=== PATIENT | male | born 1960 | race Caucasian/White ===

== ENCOUNTER 2019-11-27 08:04 | Inpatient (IN) | payer MEDICAID, OTHER ==
[~2019-11-27] VITALS: Ht 167.6 cm; Wt 89.2 kg
[2019-11-27] MEDS ORDERED: SODIUM CHLORIDE FLUSH 10ML SYR IVF ONE (08:30)
--- NOTE | 2019-11-27 08:40 | NUR ---
To ER today for abnl labs: elevated creatinine & K+. Pt has gen. weakness/tiredness. Guiac-. Markedly hypertensive at time of arrival through triage. BP recheck once roomed mildly elevated. Provider informed & labetolol held. EKG completed, cardiac, NiBP & Spo2 monitors IP. IV est, labs drawn & sent. Call light within reach, @ BS. Both aware of POC.
[2019-11-27 08:42] LABS: BASOPHILS # (AUTO) 0.02 x10^3/uL (0-0.1); BASOPHILS % (AUTO) 0 % (0-1); EOSINOPHILS # (AUTO) 0.21 x10^3/uL (0-0.4); EOSINOPHILS % (AUTO) 2 % (1-7); LYMPHOCYTES # (AUTO) 0.81 x10^3/uL (1-3.4); LYMPHOCYTES % (AUTO) 7 % (22-44); MD NO; MEAN CORPUSCULAR HEMOGLOBIN 30.1 pg (27.5-34.5); MEAN CORPUSCULAR HGB CONC 33.4 g/dL (33.2-36.2); MEAN CORPUSCULAR VOLUME 90.2 fL (81-97); MEAN PLATELET VOLUME 8.2 fL (7.4-10.4); MONOCYTES % (AUTO) 5 % (2-9); NEUTROPHILS # (AUTO) 9.33 x10^3/uL (1.8-6.8); NEUTROPHILS % (AUTO) 85 % (42-75); PLATELET COUNT 223 x10^3/uL (130-400); RED BLOOD COUNT 3.27 x10^6/uL (4.38-5.82)
[2019-11-27 08:58] LABS: INTERNATIONAL NORMALIZED RATIO 1.08 (0.93-1.1); PROTHROMBIN TIME 11.5 Seconds (9.6-11.5)
[2019-11-27 09:00] LABS: ALANINE AMINOTRANSFERASE 50 U/L (12-78); ALBUMIN 3.2 g/dL (3.4-5.0); ANION GAP 15 mmol/L (5-15); CALCIUM 8.8 mg/dL (8.5-10.1); CHLORIDE 107 mmol/L (98-107); CREATININE 8.98 mg/dL (0.7-1.3)
[2019-11-27] MEDS ORDERED: LABETALOL 5MG/ML, 20ML IVPush ONE (09:00)
[2019-11-27 09:04] LABS: ALKALINE PHOSPHATASE 125 U/L (45-117); BILIRUBIN,TOTAL 0.3 mg/dL (0.2-1.0); TOTAL PROTEIN 7.5 g/dL (6.4-8.2); TROPONIN I < 0.015 ng/mL (0.000-0.045)
[2019-11-27] MEDS ORDERED: METF500T17 PO (09:21)
[2019-11-27] MEDS ORDERED: OMEG1CAP23 PO (09:21)
[2019-11-27] MEDS ORDERED: ASPI-515 PO (09:21)
[2019-11-27] MEDS ORDERED: METO25TA91 PO (09:21)
[2019-11-27] MEDS ORDERED: ATOR-2 PO (09:21)
[2019-11-27] MEDS ORDERED: LOSA25TA25 PO (09:21)
[2019-11-27] MEDS ORDERED: CALCIUM GLUCONATE 4.6 MEQ/10 ML IVPush ONE (09:30)
[2019-11-27] MEDS ORDERED: SODIUM BICARB 8.4%, 50ML SYRINGE IVPush ONE (09:30)
[2019-11-27] MEDS ORDERED: DEXTROSE 50%, 50ML SYRINGE IVPush ONE (09:30)
[2019-11-27] MEDS ORDERED: INSULIN REGULAR 100 UNITS/ML, 3ML VIAL IVPush ONE (09:30)
[2019-11-27] MEDS ORDERED: FUROSEMIDE 40 MG/4 ML IVPush ONE (09:30)
[2019-11-27] MEDS ORDERED: FUROSEMIDE 40 MG/4 ML ONE (09:35)
[2019-11-27] MEDS ORDERED: CALCIUM GLUCONATE 4.6 MEQ/10 ML ONE (09:35)
[2019-11-27] MEDS ORDERED: SODIUM BICARBONATE 1 MEQ/ML, 50ML VIAL ONE (09:35)
[2019-11-27] MEDS ORDERED: DEXTROSE 50%, 50ML SYRINGE ONE (09:36)
[2019-11-27] MEDS ORDERED: LABETALOL 5MG/ML, 20ML ONE (09:36)
[2019-11-27] MEDS ORDERED: INSULIN SINGLE DOSE, ER ONE (09:37)
--- NOTE | 2019-11-27 10:43 | NUR ---
DR GARCIA TO THE BS MEDS GIVEN ORDERED DR Trinh REQUESTS CATH 2500ML INITIAL OUTPUT
[2019-11-27 11:06] LABS: MICROSCOPIC AUTO
[2019-11-27 11:19] LABS: CREATININE,URINE RANDOM 40.1 mg/dL
[2019-11-27] MEDS ORDERED: ONDANSETRON ODT 4 MG PO PRN (11:30)
[2019-11-27] MEDS: SODIUM BICARB 8.4%,50ML SYR. 75 MEQ in SODIUM CHLORIDE 0.45% 1,000 ML IV SCH ×2 (11:30→18:33)
[2019-11-27] MEDS ORDERED: SENNA/DOCUSATE TABLET PO PRN (11:30)
[2019-11-27] MEDS ORDERED: ACETAMINOPHEN 325 MG TABLET PO PRN ×2 (11:30→12:29)
[2019-11-27] MEDS ORDERED: ONDANSETRON 2MG/ML, 2ML IVPush PRN (11:30)
--- NOTE | 2019-11-27 12:07 | NUR ---
[facility] CALLED TO THE FLOOR
[2019-11-27] MEDS: HEPARIN 5,000 UNITS/ML, 1ML SQ SCH ×2 (12:21→20:36)
[2019-11-27] MEDS: TAMSULOSIN 0.4 MG CAP.ER.24H PO SCH ×2 (12:28→17:13)
[2019-11-27] MEDS: FERROUS SULFATE 325 MG TABLET PO SCH (12:28)
[2019-11-27 12:37] VITALS: BP 174/96
[2019-11-27] MEDS: INSULIN LISPRO 100 UNITS/ML, PEN SQ-INSULIN SCH ×2 (16:00→20:37)
[2019-11-27] MEDS: CARVEDILOL 3.125 MG TABLET PO SCH (17:13)
[2019-11-27 19:25] LABS: ANION GAP 13 mmol/L (5-15); CALCIUM 8.6 mg/dL (8.5-10.1); CHLORIDE 102 mmol/L (98-107); CREATININE 8.24 mg/dL (0.7-1.3)
[2019-11-27 19:48] VITALS: BP 155/93
[2019-11-28 01:54] VITALS: BP 143/89
[2019-11-28] MEDS: SODIUM BICARB 8.4%,50ML SYR. 75 MEQ in SODIUM CHLORIDE 0.45% 1,000 ML IV SCH ×3 (03:16→21:15)
[2019-11-28] MEDS: HEPARIN 5,000 UNITS/ML, 1ML SQ SCH ×3 (05:00→21:00)
[2019-11-28] MEDS: CARVEDILOL 3.125 MG TABLET PO SCH ×2 (05:25→18:37)
[2019-11-28 05:53] LABS: BASOPHILS # (AUTO) 0.04 x10^3/uL (0-0.1); BASOPHILS % (AUTO) 0 % (0-1); EOSINOPHILS # (AUTO) 0.14 x10^3/uL (0-0.4); EOSINOPHILS % (AUTO) 2 % (1-7); LYMPHOCYTES # (AUTO) 1.07 x10^3/uL (1-3.4); LYMPHOCYTES % (AUTO) 12 % (22-44); MD NO; MEAN CORPUSCULAR HGB CONC 33.7 g/dL (33.2-36.2); MEAN CORPUSCULAR VOLUME 88.9 fL (81-97); MEAN PLATELET VOLUME 8.3 fL (7.4-10.4); MONOCYTES # (AUTO) 0.53 x10^3/uL (0.2-0.8); MONOCYTES % (AUTO) 6 % (2-9); NEUTROPHILS # (AUTO) 7.45 x10^3/uL (1.8-6.8); NEUTROPHILS % (AUTO) 81 % (42-75); PLATELET COUNT 243 x10^3/uL (130-400); RED BLOOD COUNT 3.47 x10^6/uL (4.38-5.82); RED CELL DISTRIBUTION WIDTH 13.7 % (9.4-14.8)
[2019-11-28 06:06] LABS: ANION GAP 14 mmol/L (5-15); CALCIUM 8.2 mg/dL (8.5-10.1); CHLORIDE 103 mmol/L (98-107)
[2019-11-28 06:07] LABS: CREATININE 7.56 mg/dL (0.7-1.3)
[2019-11-28] MEDS: INSULIN LISPRO 100 UNITS/ML, PEN SQ-INSULIN SCH ×4 (07:00→21:00)
[2019-11-28 07:55] VITALS: BP 157/91
[2019-11-28] MEDS: OMEGA-3/FISH OIL CAPSULE PO SCH (08:51)
[2019-11-28] MEDS: TAMSULOSIN 0.4 MG CAP.ER.24H PO SCH ×3 (08:52→18:36)
[2019-11-28] MEDS ORDERED: IRON DEXTRAN COMPLEX 25 MG in SODIUM CHLORIDE 0.9% 50 ML IV ONE (11:00)
[2019-11-28] MEDS ORDERED: IRON DEXTRAN COMPLEX 1,400 MG in SODIUM CHLORIDE 0.9% 250 ML IV ONE (11:30)
[2019-11-28] MEDS ORDERED: EPINEPHRINE SYRINGE 0.1 MG/ML, 10ML IVPush PRN (12:00)
[2019-11-28 12:58] VITALS: BP 142/83
[2019-11-28 19:06] VITALS: BP 145/87
[2019-11-29 00:28] VITALS: BP 146/80
[2019-11-29] MEDS: SODIUM BICARB 8.4%,50ML SYR. 75 MEQ in SODIUM CHLORIDE 0.45% 1,000 ML IV SCH ×3 (03:38→15:27)
[2019-11-29] MEDS: HEPARIN 5,000 UNITS/ML, 1ML SQ SCH ×2 (05:15→12:37)
[2019-11-29] MEDS: CARVEDILOL 3.125 MG TABLET PO SCH (05:24)
[2019-11-29 06:45] LABS: ANION GAP 10 mmol/L (5-15); CALCIUM 7.9 mg/dL (8.5-10.1); CHLORIDE 105 mmol/L (98-107); CREATININE 6.25 mg/dL (0.7-1.3)
[2019-11-29 07:24] VITALS: BP 136/80
[2019-11-29] MEDS: INSULIN LISPRO 100 UNITS/ML, PEN SQ-INSULIN SCH ×2 (08:00→11:09)
[2019-11-29] MEDS: OMEGA-3/FISH OIL CAPSULE PO SCH (09:08)
[2019-11-29] MEDS: TAMSULOSIN 0.4 MG CAP.ER.24H PO SCH ×2 (09:08→12:37)
[2019-11-29] MEDS ORDERED: SODIUM BICARB 8.4%,50ML SYR. 75 MEQ in SODIUM CHLORIDE 0.45% 1,000 ML IV SCH (10:30)
[2019-11-29] MEDS: FERROUS SULFATE 325 MG TABLET PO SCH (12:37)
[2019-11-29 14:14] VITALS: BP 158/92
[2019-11-29] MEDS ORDERED: TAMS-11 PO (14:20)
[2019-11-29] MEDS ORDERED: FERR-51 PO (14:20)
[2019-11-29] MEDS ORDERED: HYDR-3341 PO (14:20)
[2019-11-29] MEDS ORDERED: CARV3.1212 PO (14:20)
== END 2019-11-29 15:58 | disposition home or self-care (01) | DRG 684 ==
LOC: ED 08:36 → EDIP 10:39 → 4EST 12:15
PROVIDERS: ADMIT Internal Medicine; ATTEND Family Medicine
DX: N17.9 Acute kidney failure, unspecified (principal); D64.9 Anemia, unspecified; N13.30 Unspecified hydronephrosis; E11.649 Type 2 diabetes mellitus with hypoglycemia without coma; E66.9 Obesity, unspecified; E87.5 Hyperkalemia; F12.10 Cannabis abuse, uncomplicated; I10 Essential (primary) hypertension; I25.10 Atherosclerotic heart disease of native coronary artery without angina pectoris; R33.9 Retention of urine, unspecified; I25.2 Old myocardial infarction; Z68.31 Body mass index [BMI] 31.0-31.9, adult; Z82.49 Family history of ischemic heart disease and other diseases of the circulatory system; Z83.3 Family history of diabetes mellitus; Z95.5 Presence of coronary angioplasty implant and graft
CPT/HCPCS: 36415; 76770; 80048; 80053; 81001; 82570; 82728; 82962; 83036; 83540; 83550; 83605; 84155; 84156; 84165; 84166; 84300; 84484; 85025; 85610; 86850; 86900; 93005; G0378; J1644; J1750; J1815; J1940; J0610; J7050